=== PATIENT | female | born 1980 | race Caucasian/White ===

== ENCOUNTER 2021-09-26 12:49 | Emergency (ER) | payer OTHER ==
[~2021-09-26] VITALS: Ht 160 cm; Wt 54.4 kg
[2021-09-26] MEDS ORDERED: MORPHINE SULFATE 4 MG/1 ML DISP.SYRIN IM ONE (13:30)
[2021-09-26] MEDS ORDERED: ACETAMINOPHEN 325 MG TABLET PO ONE (13:30)
[2021-09-26] MEDS ORDERED: HYDROCODONE/APAP 5-325MG TABLET PO ONE (13:30)
[2021-09-26] MEDS ORDERED: ACETAMINOPHEN 325 MG TABLET ONE (13:35)
[2021-09-26] MEDS ORDERED: HYDROCODONE/APAP 5-325MG TABLET ONE (13:36)
[2021-09-26] MEDS ORDERED: MORPHINE SULFATE 4 MG/1 ML DISP.SYRIN ONE (13:36)
[2021-09-26] MEDS ORDERED: HYDR-4209 PO (13:45)
--- NOTE | 2021-09-26 14:01 | NUR ---
Patient c/o neck/arm pain "after a pilates class" a few days ago. medication given as ordered and instructions given for safety regarding narcotics. A woman accompanying her is to drive them home. Patient aware of meds given in ER. DC, Rx (including all precautions) and follow up instructions given and explained to patient who states she understands all instructions
== END 2021-09-26 14:03 | disposition home or self-care (01) ==
LOC: ER 12:49
DX: S13.9XXA Sprain of joints and ligaments of unspecified parts of neck, initial encounter (principal); X50.3XXA Overexertion from repetitive movements, initial encounter; Y93.B4 Activity, pilates; Y92.89 Other specified places as the place of occurrence of the external cause
CPT/HCPCS: 96372; 99283; J2270; A4663

== ENCOUNTER 2022-02-03 12:26 | Emergency (ER) | payer OTHER ==
[~2022-02-03] VITALS: Ht 162.6 cm; Wt 68.0 kg
[~2022-02-03 12:26] MED LIST: HYDR-4209 PO
--- NOTE | 2022-02-03 13:05 | NUR ---
wagner from CT/ radiology aware per Mira.
[2022-02-03] MEDS ORDERED: OXYCODONE HCL 5 MG TABLET ONE (13:13)
[2022-02-03] MEDS ORDERED: OXYCODONE HCL 5 MG TABLET PO ONE (13:15)
--- NOTE | 2022-02-03 13:16 | NUR ---
Oxycodone 5 mg given and called Radiology to do CT. Pt says she will be alright.
[2022-02-03] MEDS ORDERED: IBUP-1957 PO (14:27)
[2022-02-03] MEDS ORDERED: CLIN300C12 PO (14:27)
[2022-02-03] MEDS ORDERED: CLINDAMYCIN HCL 150 MG CAPSULE PO ONE (14:30)
[2022-02-03] MEDS ORDERED: KETOROLAC TROMETHAMINE 15 MG INJ IM ONE (14:30)
[2022-02-03] MEDS ORDERED: KETOROLAC TROMETHAMINE 15 MG INJ ONE (14:37)
[2022-02-03] MEDS ORDERED: CLINDAMYCIN HCL 300 MG CAPSULE ONE (14:37)
[2022-02-03] MEDS ORDERED: HYDR-4209 PO (14:41)
[2022-02-03 14:50] VITALS: BP 129/79
== END 2022-02-03 14:58 | disposition home or self-care (01) ==
LOC: ER 12:26
DX: K05.6 Periodontal disease, unspecified (principal); K04.7 Periapical abscess without sinus; R03.0 Elevated blood-pressure reading, without diagnosis of hypertension
CPT/HCPCS: 99284; 70486; 96372; J1885; A4663

== ENCOUNTER 2024-05-12 18:13 | Emergency (ER) | payer OTHER ==
[~2024-05-12] VITALS: Ht 157.5 cm; Wt 52.2 kg
[~2024-05-12 18:13] MED LIST changes: +CLIN300C12 PO; +IBUP-1957 PO
[2024-05-12] MEDS ORDERED: IOHEXOL 350 100 ML INFUS..BTL ONE (18:41)
[2024-05-12] MEDS ORDERED: IV NORMAL SALINE 250 ML IV ONE (18:42)
[2024-05-12] MEDS ORDERED: SWABABLE VALVE TRANSFER SET EA MC ONE (18:42)
[2024-05-12 18:49] LABS: BASOPHILS % (AUTO) 0.2 % (0.0-2.0); EOSINOPHILS # (AUTO) 0.1 K/uL (0.0-0.7); EOSINOPHILS % (AUTO) 0.9 % (0.0-7.0); HEMATOCRIT 41.8 % (31.2-41.9); HEMOGLOBIN 15.1 g/dL (10.9-14.3); LYMPHOCYTES # (AUTO) 3.3 K/uL (0.8-4.8); LYMPHOCYTES % (AUTO) 30.8 % (20.5-51.5); MEAN CORPUSCULAR HEMOGLOBIN 33.4 uug (24.7-32.8); MEAN CORPUSCULAR HGB CONC 36 g/dL (32.3-35.6); MEAN CORPUSCULAR VOLUME 92.8 fL (75.5-95.3); MONOCYTES # (AUTO) 0.6 K/uL (0.1-1.30); MONOCYTES % (AUTO) 5.4 % (0.0-11.0); NEUTROPHILS # (AUTO) 6.8 K/uL (1.8-8.9); NEUTROPHILS % (AUTO) 62.7 % (38.5-71.5); PLATELET COUNT (AUTO) 263 K/uL (179-408); RED BLOOD CELL COUNT(AUTO) 4.51 MIL/uL (3.63-4.92); RED CELL DISTRIBUTION WIDTH 12.3 % (12.3-17.7); WHITE BLOOD COUNT (AUTO) 10.8 K/uL (3.8-11.8)
[2024-05-12 18:51] LABS: DIFFERENTIAL COMMENT 1
[2024-05-12 18:56] LABS: CALCIUM 9.2 mg/dL (8.5-10.1); CREATININE 0.8 mg/dL (0.6-1.3); POTASSIUM 3.7 mmol/L (3.5-5.1)
[2024-05-12 19:09] LABS: ALBUMIN 4.2 g/dL (3.4-5.0); BILIRUBIN,TOTAL 0.8 mg/dL (0.2-1.0); TOTAL PROTEIN, SERUM 7.6 g/dL (6.4-8.2)
[2024-05-12 19:51] LABS: ETHANOL < 3 MG/DL (0-10)
[2024-05-12] MEDS ORDERED: VALPROATE SODIUM 500 MG/5 ML VIAL IV ONE (20:02)
[2024-05-12] MEDS ORDERED: DEXAMETHASONE SOD PHOSPHATE 4 MG INJ ONE (20:02)
[2024-05-12] MEDS ORDERED: MAGNESIUM SULFATE/D5W 200 ML ONE (20:03)
[2024-05-12] MEDS: DEXAMETHASONE SOD PHOSPHATE 4 MG INJ IV ONE (20:17)
[2024-05-12] MEDS: MAGNESIUM SULFATE/D5W 100 ML IV SCH (20:18)
[2024-05-12] MEDS: VALPROATE SODIUM 500 MG/5 ML VIAL IV ONE (20:18)
[2024-05-12 21:49] VITALS: BP 125/99; TEMP 97.7; O2SAT 98
== END 2024-05-12 21:55 | disposition home or self-care (01) ==
LOC: ER 18:38
DX: R51.9 Headache, unspecified (principal); R20.2 Paresthesia of skin; R42 Dizziness and giddiness; R94.31 Abnormal electrocardiogram [ECG] [EKG]; Z79.1 Long term (current) use of non-steroidal anti-inflammatories (NSAID); Z98.890 Other specified postprocedural states; Z88.7 Allergy status to serum and vaccine
CPT/HCPCS: 80053; 83880; 83735; 85025; 84484; 36415; 70496; 70498; 93005; 99285; 96361; 96365; 96375; 80320; J1100; J3475; Q9967; J3490; 70450; A4606; A4663; G0480